=== PATIENT | male | born 1940 | race Caucasian/White ===

== ENCOUNTER 2016-09-23 07:07 | Observation (INO) ==
--- NOTE | 2016-09-23 07:27 | Emergency Department Note ---
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 Patient presents with Sun and you do assist with history. Patient reports 3 days ago he was walking with a walker when he attempted to reach over on the counter felt weak and fell onto his knees. Since then has noticed some weakness in his lower extremities. He denies any head injury, loss of consciousness or neck pain at this time. He does have a small abrasion and contusion to the right upper extremity. Denies any fever, recent illness, cough, chest pain, shortness of breath. Reports some dysuria and has a history of frequent UTI. Of note patient had chemotherapy over year ago and did not have these symptoms given that he recently underwent chemotherapy again. Oat Cell in the lung current in the throat they report. He takes aspirin and clopidogrel. His oncologist is Dr. Wolfe and Dr. Oliver. On physical exam patient appears in no acute distress. He provides adequate history. Neurologic exam is normal without any focal neural deficits. Has full range of motion to all 4 extremities with some noticeable weakness symmetrical bilaterally to lower extremities. Sensation intact. CT of the head ordered. EKG, basic labs, troponin in a urinalysis ordered. Pain Scale: 0 - Related Data Home Medications Medication Instructions Recorded Confirmed Aspirin [Adult Low Dose Aspirin EC] 81 mg PO QAM 04/10/15 09/23/16 Metoprolol Tartrate [Lopressor] 50 mg PO BID 04/10/15 09/23/16 Cholecalciferol (Vitamin D3) 1,000 unit PO DAILY 05/31/16 09/23/16 [Vitamin D] Clopidogrel [Plavix] 75 mg PO DAILY 05/31/16 09/23/16 Donepezil [Aricept] 10 mg PO HS 05/31/16 09/23/16 Losartan Potassium [Cozaar] 50 mg PO BID 09/23/16 09/23/16 Memantine [Namenda] 5 mg PO DAILY 09/23/16 09/23/16 Previous Rx's Medication Instructions Recorded Omeprazole [PriLOSEC] 20 mg PO DAILY #30 capsule. 05/25/15 Allergies Allergy/AdvReac Type Severity Reaction Status Date / Time meperidine [From Demerol] AdvReac Itching Verified 09/12/16 10:35 All systems ED: reviewed and negative except as stated. Review of Systems: As Per HPI Constitutional: Reports: weakness. Denies: fever, chills Cardiovascular: Denies: chest pain, dyspnea on exertion Respiratory: Denies: cough, dyspnea Gastrointestinal: Denies: abdominal pain, nausea, vomiting Genitourinary: Reports: dysuria. Denies: urgency Musculoskeletal: Denies: back pain, neck pain Integumentary: Reports: abrasion, lesions. Denies: rash Neurological: Reports: weakness. Denies: headache Past Medical History - Past Medical History Attestation: Yes The following information was validated with the patient. Source: patient Medical history: Reports: cancer, coronary artery disease, CVA, GERD, hyperlipidemia, hypertension, myocardial infarction, TIA Psychiatric history: Reports: anxiety, depression - Social History Smoking Status: Never smoker Smokeless Tobacco Status: No Alcohol use: Reports: none Drug use: Reports: none Physical Exam - General Limitations: no limitations General appearance: alert, in no apparent distress - Head Head exam: atraumatic, normocephalic, normal inspection - Eye Eye exam: Present: normal appearance, PERRL, EOMI - ENT ENT exam: normal exam, normal oropharynx, mucous membranes moist - Neck Neck exam: Present: normal inspection, full ROM. Absent: tenderness - Expanded Neck Exam Neck exam focused ED: Absent: midline tenderness - Chest Chest inspection: Present: normal inspection, symmetric chest wall rise, other ( X maco on left upper chest wall for radiation). Absent: tenderness - Respiratory Respiratory exam: Present: normal lung sounds bilaterally. Absent: respiratory distress, wheezes - Cardiovascular Cardiovascular exam: Present: regular rate, normal rhythm, normal heart sounds - Abdominal Exam Abdominal exam: Present: soft, Non-Tender, normal bowel sounds. Absent: tenderness, distention, guarding, rebound, rigidity - Extremities Exam Extremities exam: Present: full ROM, normal capillary refill, other (contusion and ecchymosis to right arm and forearm). Absent: tenderness - Expanded Upper Extremity Exam Shoulder exam: Present: normal inspection, full ROM. Absent: tenderness Arm exam: Present: normal inspection, full ROM, ecchymosis. Absent: tenderness , swelling Elbow exam: Present: normal inspection, full ROM, ecchymosis. Absent: tenderness, swelling Forearm/Wrist exam: Present: normal inspection, full ROM, ecchymosis Hand exam: Present: normal inspection, full ROM Neuromotor exam: Normal: wrist extension, thumb opposition, thumb IP flexion, thumb adduction, fingers 2-5 abduction Vascular exam: Normal: capillary refill, radial pulse - Back Exam Back exam: Present: normal inspection, full ROM. Absent: tenderness, vertebral tenderness - Expanded Neurological Exam Patient oriented to: Present: person, place Cranial nerves: EOM function (II, III, IV, ): Normal, facial sensation (V): Normal, facial palsy (VII): Normal, gag reflex (IX): Normal, spinal accessory function (XI): Normal, tongue deviation (XII): Normal Motor strength - LUE: 5/5 Motor strength - RUE: 4/5 Motor strength - LLE: 5/5 Motor strength - RLE: 5/5 Upper motor neuron exam: alon neglect: Absent bilaterally, pronator drift: Absent bilaterally Sensory exam upper extremity: light touch: Normal Sensory exam lower extremity: light touch: Normal Course - Reevaluation(s) Reevaluation #1: assist with history. Patient reportedly had a fall when he was reaching out ambulating with his walker. Denies any head injury or loss of consciousness. Neurovascular exam is normal without any focal neural deficits. He has some weakness to the right upper extremity from residual stroke in the past. He also has ecchymosis to the arm no tenderness. Full range of motion intact. Labs in images obtained. He has a mild elevation of his creatinine. Urinalysis appears consistent with contamination, urine culture ordered. He still unable to ambulate or stand up under his own weight. Patient has overall generalize weakness despite full range of motion to all extremities. He does not have any findings consistent with infectious source. CT of the head did not reveal any intracranial abnormality. Will speak to the oncologist to investigate this could be likely secondary to chemoradiation. Patient will likely need admission. Family and patient are in agreement with this plan. Time: 09:46 - Consultations Consultation #1: Spoke to Dr. MAC oncologist, agrees it could be chemotherapy. Recommend admission to medicine to establish PT/OT and build strength. Will consult on the floor. Time: 09:46 Consultation #2: Spoke with on-call hospitalist reddy Ugarte to admit for generalized weakness. No further orders at this time Vital Signs Temperature 98.4 F 09/23/16 07:10 Pulse Rate 62 09/23/16 07:10 Respiratory Rate 18 09/23/16 07:10 Blood Pressure 148/77 09/23/16 07:10 O2 Sat by Pulse Oximetry 96 09/23/16 07:10 Temperature 98.3 F 09/23/16 18:37 Pulse Rate 59 09/23/16 18:37 Respiratory Rate 16 09/23/16 18:37 Blood Pressure 115/61 09/23/16 18:37 O2 Sat by Pulse Oximetry 95 09/23/16 18:37 Oxygen Delivery Oxygen Delivery Room Air Medical Decision Making - Medical Records Medical records reviewed: Yes I reviewed the patient's medical records. - Lab Data Lab results reviewed: Yes I reviewed the patient's lab results. Result diagrams: 09/23/16 07:42 09/23/16 07:42 Lab Results 09/23/16 09/23/16 09/23/16 Range/Units 07:19 07:42 07:42 WBC 4.9 (4.3-11.1) K/mcL RBC 4.04 L (4.19-5.50) M/mcL Hgb 11.9 L (12.9-16.9) g/dL Hct 35.4 L (37.5-50.1) % MCV 87.6 (83.0-100.0) fL MCH 29.5 (28.0-33.3) pg MCHC 33.6 (31.6-35.5) g/dL RDW 13.6 (11.5-14.5) % Plt Count 117 L (140-400) K/mcL MPV 9.6 (9.4-12.4) fL Immature Gran % 1.6 (0-4) % Seg Neutrophils % 87.0 % Lymphocytes % 9.0 % Monocytes % 2.0 % Eosinophils % 0.2 % Basophils % 0.2 % Neutrophils # 4.3 (1.6-8.9) K/mcL Lymphocytes # 0.4 L (0.6-4.6) K/mcL Monocytes # 0.1 (0.0-1.3) K/mcL Eosinophils # 0.0 (0.0-0.6) K/mcL Basophils # 0.0 (0.0-0.2) K/mcL Sodium 139 (136-145) mEq/L Potassium 4.0 (3.5-4.5) mEq/L Chloride 103 (98-109) mEq/L Carbon Dioxide 27 (19-29) mEq/L BUN 26 (8-26) mg/dL Creatinine 1.31 H (0.72-1.25) mg/dL Est GFR ( Amer) > 60 (> 60) Est GFR (Non-Af Amer) 54 L (> 60) BUN/Creatinine Ratio 20 (6-26) Glucose 105 H (70-99) mg/dL POC Glucose 130 H (58-89) Calculated Osmolality 293 (280-300) Calcium 9.2 (8.6-10.8) mg/dL Troponin I (0-0.03) ng/mL Urine Color (Yellow) Urine Clarity (Clear) Urine pH (5.0-8.0) pH Units Ur Specific Lamy (1.010-1.025) Urine Protein (Neg-Trace) mg/dL Urine Glucose (UA) (Normal) mg/dL Urine Ketones (Negative) mg/dL Urine Blood (Negative) Urine Nitrite (Negative) Urine Bilirubin (Negative) Urine Urobilinogen (Normal) mg/dL Ur Leukocyte Esterase (Negative) Urine Microscopic RBC (0-3) per hpf Urine Microscopic WBC (0-3) per hpf Ur Squamous Epith Cells (None-Few) per lpf Urine Bacteria (None-Few) per hpf Hyaline Casts (None-Few) per lpf Ur Culture Indicated? (NO) 09/23/16 09/23/16 Range/Units 07:42 08:20 WBC (4.3-11.1) K/mcL RBC (4.19-5.50) M/mcL Hgb (12.9-16.9) g/dL Hct (37.5-50.1) % MCV (83.0-100.0) fL MCH (28.0-33.3) pg MCHC (31.6-35.5) g/dL RDW (11.5-14.5) % Plt Count (140-400) K/mcL MPV (9.4-12.4) fL Immature Gran % (0-4) % Seg Neutrophils % % Lymphocytes % % Monocytes % % Eosinophils % % Basophils % % Neutrophils # (1.6-8.9) K/mcL Lymphocytes # (0.6-4.6) K/mcL Monocytes # (0.0-1.3) K/mcL Eosinophils # (0.0-0.6) K/mcL Basophils # (0.0-0.2) K/mcL Sodium (136-145) mEq/L Potassium (3.5-4.5) mEq/L Chloride (98-109) mEq/L Carbon Dioxide (19-29) mEq/L BUN (8-26) mg/dL Creatinine (0.72-1.25) mg/dL Est GFR ( Amer) (> 60) Est GFR (Non-Af Amer) (> 60) BUN/Creatinine Ratio (6-26) Glucose (70-99) mg/dL POC Glucose (58-89) Calculated Osmolality (280-300) Calcium (8.6-10.8) mg/dL Troponin I 0.00 (0-0.03) ng/mL Urine Color Yellow (Yellow) Urine Clarity Clear (Clear) Urine pH 6.0 (5.0-8.0) pH Units Ur Specific Lamy 1.019 (1.010-1.025) Urine Protein Negative (Neg-Trace) mg/dL Urine Glucose (UA) Normal (Normal) mg/dL Urine Ketones Negative (Negative) mg/dL Urine Blood Negative (Negative) Urine Nitrite Negative (Negative) Urine Bilirubin Negative (Negative) Urine Urobilinogen Normal (Normal) mg/dL Ur Leukocyte Esterase Trace H (Negative) Urine Microscopic RBC 0-3 (0-3) per hpf Urine Microscopic WBC 3-5 H (0-3) per hpf Ur Squamous Epith Cells Many H (None-Few) per lpf Urine Bacteria Many H (None-Few) per hpf Hyaline Casts None Seen (None-Few) per lpf Ur Culture Indicated? YES A (NO) - Radiology Data Radiology results reviewed: Yes I reviewed the patient's radiology results. Chest X-Ray 09/23/16 07:25 IMPRESSION: Normal chest x-ray D/ / Wilberto Reaves MD / Wilberto Reaves MD Interpreting Provider: Wilberto Reaves MD Head CT 09/23/16 07:25 IMPRESSION: 1. No acute intracranial abnormality nor acute calvarial fracture. 2. Minimal to mild chronic small vessel ischemic changes. D/ / Aravind Sandhu MD / Aravind Sandhu MD Interpreting Provider: Aravind Sandhu MD - EKG Data EKG #1 EKG attestation: Yes I reviewed and interpreted this EKG. EKG results narrative: EKG performed 716 normal sinus rhythm 63 bpm, normal axis, no ST elevation or depression, no T wave inversion, intervals are within normal limits. Compared to old EKG performed 04/10/2015 with consistent findings. No acute ischemic changes. Attestation Statement - Attestation Attestation: I examined this patient and my medical decision-making was reviewed with the Resident Physician. I agree with the documented findings, disposition and treatment plan as described except to the extent set forth below. To ED with weakness. states that he was up and down all night. He could not stand on his own. He was having trouble getting to the bathroom. He had a fall on Friday. That is when all of this began. 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 Last treatment was Friday. He has been afebrile. No chest pain. No nausea vomiting. Examination shows an laying in bed in no acute distress. Moving all extremities. Abdomen soft nontender. Lungs clear. Plan. His workup has been unremarkable. CT head unremarkable. 3-5 whites in his urine. Electrolytes unremarkable. We will discussed with oncology.
[2016-09-23 08:01] LABS: Basophils % 0.2 %; Eosinophils % 0.2 %; Hematocrit 35.4 % (37.5-50.1); Hemoglobin 11.9 g/dL (12.9-16.9); Immature Granulocytes % 1.6 % (0-4); Lymphocytes # 0.4 K/mcL (0.6-4.6); Mean Corpuscular HGB Conc 33.6 g/dL (31.6-35.5); Mean Corpuscular Hemoglobin 29.5 pg (28.0-33.3); Mean Corpuscular Volume 87.6 fL (83.0-100.0); Mean Platelet Volume 9.6 fL (9.4-12.4); Monocytes # 0.1 K/mcL (0.0-1.3); Neutrophils # 4.3 K/mcL (1.6-8.9); Platelet Count 117 K/mcL (140-400); Red Blood Count 4.04 M/mcL (4.19-5.50); Red Cell Distribution Width 13.6 % (11.5-14.5)
[2016-09-23 08:02] LABS: BUN/Creatinine Ratio 20 (6-26); Blood Urea Nitrogen 26 mg/dL (8-26); Calcium 9.2 mg/dL (8.6-10.8); Carbon Dioxide 27 mEq/L (19-29); Chloride 103 mEq/L (98-109); Glucose 105 mg/dL (70-99); Osmolality,Calculated 293 (280-300); Sodium 139 mEq/L (136-145); eGFR For African Americans > 60 (> 60); eGFR For Non-African Americans 54 (> 60)
[2016-09-23 08:35] LABS: Bilirubin,Urine Negative (Negative); Blood,Urine Negative (Negative); Clarity,Urine Clear (Clear); Color,Urine Yellow (Yellow); Glucose,Urine (UA) Normal (Normal); Ketones,Urine Negative (Negative); Leukocyte Esterase,Urine Trace (Negative); Nitrite,Urine Negative (Negative); Protein,Urine Negative (Neg-Trace); Specific Gravity,Urine 1.019 (1.010-1.025); Urobilinogen,Urine Normal (Normal)
[2016-09-23 08:36] LABS: Bacteria,Urine Many per hpf (None-Few); Hyaline Casts,Urine None Seen per lpf (None-Few); RBC,Urine 0-3 per hpf (0-3); Squamous Epithelial Cell,Urine Many per lpf (None-Few)
[2016-09-23] MEDS ORDERED: 0.9 % Sodium Chloride 1,000 ML IVC ONE (09:45)
[2016-09-23] MEDS ORDERED: Albuterol 2.5 MG/3 ML NEBULIZER IH PRN (13:05)
[2016-09-23] MEDS ORDERED: Naloxone 0.4 MG/ML INJ IVP PRN (13:07)
--- NOTE | 2016-09-23 13:45 | Internal Med History&Physical ---
<Maninder Goins - Last Filed: 09/23/16 13:50> Date of Encounter: 09/23/16 Time of Encounter: 13:31 Assessment and Plan (1) TIA (transient ischemic attack) Current visit: Yes Status: Acute She is being admitted to rule out transient ischemic attack. Reports a 3 day history of generalized weakness with a fall at home. Reports no head trauma as result of fall. Patient notes over the last 3 days weakness is progressing, he now has a shuffling gait, and what he describes as scissoring gait. Admit for observation Oncology consult in the emergency department PT/OT consult for recent motor deficits. If symptoms do not improve consider a consult to neuro. Every 4 hours neuro checks NIHSS score dysphagia screening start Diet based upon results of screening. Every 4 hours vital signs Normal saline at 80 mL an hour Continuous telemetry Continuous SPO2 Place on O2 PRN for spo2 above 92% CBC, BMP, PHOS, MG in am. UA positive in the ED with trace leuks, d/t immunocompromise Send UC and place on Rocephin. De-escalate antibiotic therapy appropriate based upon results of culture 2.5 INH Albuterol Q2hr for dyspnea/wheezing Qualifiers: Transient cerebral ischemia type: unspecified Qualified Code(s): G45.9 - Transient cerebral ischemic attack, unspecified (2) Bilateral leg weakness Current visit: No Status: Acute New bilateral lower extremity weakness that is noted as progressive. Denies any numbness and tingling. Strength deficits/3 bilaterally. No neglect or hypotonia noted. Admit for observation PT/OT consult for recent motor deficits. If symptoms do not improve consider a consult to neuro. Every 4 hours neuro checks NIHHS score Every 4 hours vital signs CBC, BMP, PHOS, MG in am. (3) UTI (urinary tract infection) Current visit: Yes Status: Acute Suspect urinary tract infection. UA sent in the emergency department revealed as the patient is immunocompromised and has a recent history of UTI I recommended placed on prophylactic antibiotic treatment with Rocephin 1 g daily. Urine culture sent plan to de-escalate antibiotic therapy is appropriate. Admit for observation CBC, BMP, PHOS, MG in am. Qualifiers: Urinary tract infection type: site unspecified Hematuria presence: without hematuria Qualified Code(s): N39.0 - Urinary tract infection, site not specified (4) DVT prophylaxis Current visit: Yes Status: Acute The patient does have cancer he is a high risk for DVT. DVT prophylaxis implemented with Lovenox 40 mg subcutaneous. Internal Medicine - H&P: HPI Chief complaint: Generalized BLE weakness, and fall starting 3 days ago Admitted From: Home Plans for Post Hospital Care: Home History of present illness: Mr. Lucas is a 75 year old male CVA, TIA, GERD, HLD, HTN, [place] 6 years ago, anxiety, depression, and a recent diagnosis of cell carcinoma of his neck for which she is being seen by the oncology. Presented to [facility] today with complaint of ongoing, and progressive generalized weakness of BLE 3 days and a fall without head trauma 3 days ago. Denies any N/T or pain in BLE. BLE weakness is noted to increase with any activity and only minimally relieved by rest. at bedside and She notes that the weakness appears to be getting worse after the fall on Friday. 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 He last received chemotherapy on Friday of last week denies any fever, flulike symptoms, dizziness, headaches , vision changes, chest pain, or shortness of breath. Admits to new dysuria, with urinary urgency, and incontinence as well as new bilateral lower extremity weakness, new shuffling gait, with scissoring developing over the last [address] of the head completed an EGD and was found to be negative for acute intracranial abnormalities. Did note minimal to mild chronic small vessel ischemic disease as patient does have history of CVA. EKG in the ED showed sinus rhythm. Troponin negative at 0.00. There is additional concern for UTI UA was sent indicating trace leuks and the patient is immunocompromised. His states that he was up many times throughout the night complaining of dysuria and urinary urgency. He Is being admitted [facility] for further workup and evaluation. Past Med Surg Social Fam HX - Past Medical History Medical history: cancer, coronary artery disease, CVA, GERD, hyperlipidemia, hypertension, myocardial infarction, TIA Psychiatric history: anxiety, depression - Social History Smoking Status: Never smoker Smokeless Tobacco Status: No Alcohol use: none Drug use: none - Family History Father Living Status: Hx Family Cardiac Disorders: Yes Hx Family Respiratory Disorders: No Hx Family Cancer: Yes Hx Family GI Disorders: No Hx Family Endocrine Disorder: No Mother Living Status: Hx Family Cancer: Yes (skin) Brother Hx Family Cancer: Yes (skin) Sister Hx Family Cancer: Yes (skin) Internal Medicine - H&P: Meds Aspirin [Adult Low Dose Aspirin EC] 81 mg PO QAM 04/10/15 [History] Metoprolol Tartrate [Lopressor] 50 mg PO BID 04/10/15 [History] Omeprazole [PriLOSEC] 20 mg PO DAILY #30 capsule. 05/25/15 [Rx] Cholecalciferol (Vitamin D3) [Vitamin D] 1,000 unit PO DAILY 05/31/16 [History] Clopidogrel [Plavix] 75 mg PO DAILY 05/31/16 [History] Donepezil [Aricept] 10 mg PO HS 05/31/16 [History] Losartan Potassium [Cozaar] 50 mg PO BID 09/23/16 [History] Memantine [Namenda] 5 mg PO DAILY 09/23/16 [History] Allergies meperidine [From Demerol] Adverse Reaction (Verified 09/12/16 10:35) Itching All Systems PM: A 10-system review of systems was performed and is negative for pertinent findings except as documented above in the HPI. - Constitutional Constitutional: fatigue, weakness (New progressive Fatigue and weakness noted over the last 3 days), no chills, no fever(s), no night sweats - EENT Eyes: no blurry vision, no change in vision, no discharge, no loss of vision, no pain, no photophobia, no spots in vision, no other visual disturbances Ears: no ear discharge, no ear pain, no tinnitus Nose, mouth and throat: no dysphagia, no nasal discharge, no neck pain, no sore throat - Cardiovascular Cardiovascular ROS IM: dyspnea (However it is noted as chronic), no chest pain, no diaphoresis, no irregular heart rhythm, no lightheadedness, no palpitations, no syncope - Respiratory Respiratory: cough (Chronic nonproductive cough noted, not getting any worse), no dyspnea, no wheezing, no excessive phlegm production - Gastrointestinal Gastrointestinal: no abdominal pain, no diarrhea, no hematemesis, no hematochezia, no melena, no nausea, no vomiting - Genitourinary Genitourinary ROS male: dysuria (Dysuria 3 days), nocturia (Admits to nocturia 3 days up to 5 times a night), urinary frequency, urinary incontinence (New 3 days), urinary urgency, no flank pain, no hematuria, no scrotal swelling - Musculoskeletal Musculoskeletal ROS IM: muscle weakness (Lateral lower extremity muscle weakness with new shuffling gait and what he describes as possibly a scissoring gait), no back pain, no joint swelling, no limited range of motion, no numbness , no tingling - Integumentary Integumentary IM: no rash, no unusual bruising - Neurological Neurological ROS: abnormal gait, weakness, no abnormal movements, no abnormal speech, no behavioral changes, no burning sensations, no confusion, no convulsions, no disequilibrium, no dizziness, no focal weakness, no headache(s) , no lack of coordination, no loss of vision, no numbness, no tingling, no tremor(s) - Psychiatric Psychiatric: anxiety (Admits to being increasingly anxious over the last 3 days , admits that functional decline and new cancer diagnosis/treatment may be the cause) - Hematologic/Lymphatic Hematologic/Lymphatic: no easy bruising - Constitutional Vitals: Temp Pulse Resp BP Pulse Ox 98.3 F 74 14 172/63 96 09/23/16 12:21 09/23/16 12:21 09/23/16 12:21 09/23/16 12:21 09/23/16 13:02 General appearance: Present: A&O X 3, pleasant, answers questions appropriately Exam: The patient appears to be slightly anxious. He believes his anxiety stems from new functional decline, and cancer diagnosis. Also, the room and was placed and was assumed to be a hospice room by he and his . It was explained to him that this was not a hospice room and that he did not need to worry about that at this time. - Head Head exam: Present: atraumatic, normocephalic - Eye Eye exam: Present: PERRL, conjuntiva pink, sclera anicteric Pupils: Present: PERRL - Neck Neck exam general surgery: Present: supple, trachea midline. Absent: lymphadenopathy - Respiratory Respiratory exam: Present: CTAB. Absent: accessory muscle use, rales, rhonchi, wheezes - Cardiovascular Cardiovascular exam: Present: RRR, +S1, +S2. Absent: diastolic murmur, gallop, rubs, systolic murmur - GI/Abdominal GI/Abdominal exam: Present: normal bowel sounds, soft, no peritoneal signs. Absent: distended, tenderness - Extremities Exam Extremities exam: Present: warm, radial pulses palpable and symmetrical. Absent : calf tenderness, cyanotic, pedal edema - Neurological Exam Neurological exam: Present: CN II-XII intact, oriented X3, reflexes normal, no focal deficits. Absent: pronater drift, facial droop, speech deficit Additional comments: Strength deficits noted, upper extremities disproportionately lower extremities. 4/3 bilaterally. No dysarthria, facial palsies, neglect, hypotonia, or alterations and reflexes noted. Exam revealed only bilateral lower extremity weakness. - Skin Skin exam: Present: dry, intact Additional comments: Ecchymosis is noted to right upper extremity. Internal Med - H&P Results - Labs CBC & Chem 7: 09/23/16 07:42 09/23/16 07:42 - EKG Data EKG shows normal: sinus rhythm Rate: normal - EKG Data Prior EKG available for review: yes When compared to previous EKG: there is no significant change - Diagnostic Studies Chest x-ray Additional comments: No acute pulmonary process CT scan - head Additional comments: No acute intracranial abnormalities. However, did note minimal to mild chronic small vessel ischemic changes. <Gill Howell - Last Filed: 09/23/16 18:39> Date of Encounter: 09/23/16 Internal Medicine - H&P: HPI History of present illness: Mr. Lucas is a 75 year old male All Systems PM: A 10-system review of systems was performed and is negative for pertinent findings except as documented above in the HPI. - Constitutional Vitals: Temp Pulse Resp BP Pulse Ox 98.3 F 59 16 115/61 95 09/23/16 18:37 09/23/16 18:37 09/23/16 18:37 09/23/16 18:37 09/23/16 18:37 Internal Med - H&P Results - Labs CBC & Chem 7: 09/23/16 07:42 09/23/16 07:42 - Attending Attestation I examined this patient and my medical decision-making was reviewed with the HOME HEALTH CNA. I agree with the documented findings, disposition and treatment plan as described .
--- NOTE | 2016-09-23 14:10 | Oncology Inp Consult Note ---
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 He has not experienced significant myelosupression, however there is significant worsening of his performance status due to generalized weakness. At this time there is not clear evidence of an underlying infection, recurrent stroke or electrolytes abnormalities to explain his worsening generalized weakness. It could be related to his recent course of cisplatin/etoposide. At this time he is in the middle of his chemotherapy regimen and there are not indications for inpatient chemotherapy. - Please monitor CBC daily while inpatient. (2) Weakness Status: Acute Assessment and plan: Management and work up as per primary team. If work up does not reveal a clear culprit for his worsening weakness, for exclusion, his diagnosis chemotherapy induced generalized weakness. He will need to follow up with primary oncologist after discharge to decide whether it would be necessary to dose adjust next chemo treatment or delay treatment until his performance status has improved. He and his are aware that he may need SNF rehab, institutional care. - Data of Consult Requesting Physician: Ashley Mckeon Primary Care Provider: PCP [place] - Consult Narrative Reason for consult: management of small cell carcinoma History of present illness: Chief complaint: generalized weakness/recent fall. Mr. Lucas is a 75 year old male of small cell neuroendocrine cancer ( [id number]) s /p concurrent chemoradiation with 4 cycles of cisplatin/etoposide from 06/08/15 to 08/16/15 with scans revealing good response to therapy, and recent biopsy biopsy of left supra clavicular node revealing recurrence, with palliative chemotherapy with cisplatin 50 mg/m2 and etoposide 60 mg/m2 ( 21 day cycle) started on 09/16/16. Patient was accompanied by his who provide most of the history. 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 Patient's report that he experienced significant worsening of his performance status following chemotherapy, caracterized mainly for generalized weakness, but not focal complaints. She reports that prior to chemotherapy he used to be able to ambulate at home with a walker ( with not fall in the prior 6 weeks), and take a shower independently. Since completing of chemotherapy she noticed a significant decline, now being unable to ambulate, he cannot stand by himself; on Friday, while trying to reach a towel in the bathroom, he felt down onto his knees. She has also noticed worsening of his chronic urinary incontinence, along with chronic back pain. She reports that he is complaining of dysphagia what has been attrited to his neck metastatic lesion, and for the last few weeks she has noticed that he cough after eating. she denies any recent episode of fever, chills, focal weakness, bleeding events. His creatinine is mildly elevated, but she does not think that he could be dehydrated in view that he has been drinking abundant fluids. Hospital course: CT head failed to show acute intra cranial lesions. Past Med Surg Social Fam HX - Past Medical History Medical history: cancer, coronary artery disease, CVA, GERD, hyperlipidemia, hypertension, myocardial infarction, TIA Psychiatric history: anxiety, depression - Social History Smoking Status: Never smoker Smokeless Tobacco Status: No Alcohol use: none Drug use: none Additional social history: Lives with his who is the main caregiver. Reports that he was independent with ambulatation and shower until last week. - Family History Mother Living Status: Hx Family Cancer: Yes (skin) Brother Hx Family Cancer: Yes (skin) Sister Hx Family Cancer: Yes (skin) Father Living Status: Hx Family Cardiac Disorders: Yes Hx Family Respiratory Disorders: No Hx Family Cancer: Yes Hx Family GI Disorders: No Hx Family Endocrine Disorder: No Medications and Allergies Aspirin [Adult Low Dose Aspirin EC] 81 mg PO QAM 04/10/15 [History] Metoprolol Tartrate [Lopressor] 50 mg PO BID 04/10/15 [History] Omeprazole [PriLOSEC] 20 mg PO DAILY #30 capsule. 05/25/15 [Rx] Cholecalciferol (Vitamin D3) [Vitamin D] 1,000 unit PO DAILY 05/31/16 [History] Clopidogrel [Plavix] 75 mg PO DAILY 05/31/16 [History] Donepezil [Aricept] 10 mg PO HS 05/31/16 [History] Losartan Potassium [Cozaar] 50 mg PO BID 09/23/16 [History] Memantine [Namenda] 5 mg PO DAILY 09/23/16 [History] Allergies meperidine [From Demerol] Adverse Reaction (Verified 09/12/16 10:35) Itching Constitutional: Present: fatigue, malaise, weakness. Absent: excessive sweating , fever(s), night sweats Nose, mouth and throat: Present: dysphagia. Absent: mouth pain Cardiovascular: Present: pedal edema. Absent: chest pain with activity, diaphoresis, dyspnea on exertion Respiratory: Present: cough. Absent: dyspnea, hemoptysis, dyspnea on exertion, pain on inspiration, excessive phlegm production Gastrointestinal: Present: dysphagia. Absent: abdominal pain, fecal incontinence Genitourinary: urinary incontinence Musculoskeletal: Present: muscle weakness Integumentary: Absent: bleeding lesions Neurological: Present: confusion, memory loss. Absent: focal weakness Psychiatric: Present: confusion, memory loss Hematologic/Lymphatic: Absent: easy bleeding Allergic/Immunologic: Absent: throat swelling Oncology - Exam - Constitutional Vitals: Temp Pulse Resp BP Pulse Ox 98.3 F 74 14 172/63 96 09/23/16 12:21 09/23/16 12:21 09/23/16 12:21 09/23/16 12:21 09/23/16 13:02 - Head Head exam: Present: normal inspection - Eye Eye exam: Present: EOMI - ENT ENT exam: Present: normal exam, normal oropharynx - Respiratory Respiratory exam: Present: CTAB. Absent: prolonged expiratory phase, rales, respiratory distress - Cardiovascular Cardiovascular exam: Present: +S1 - GI/Abdominal GI/Abdominal exam: Present: normal bowel sounds. Absent: organomegaly, pulsatile mass, rebound - Extremities Exam Extremities exam: Present: pedal edema Additional comments: minimal pedal edema bilaterally . no tenderness - Back Exam Back exam: Present: vertebral tenderness. Absent: paraspinal tenderness - Neurological Exam Neurological exam: Present: alert, CN II-XII intact. Absent: no focal deficits - Psychiatric Psychiatric exam: Present: normal affect. Absent: agitated, anxious - Skin Skin exam: Present: normal color. Absent: abrasion, erythema Consult Discharge Plan - Plan [facility]errals: [facility] [Primary Care Provider] -
--- NOTE | 2016-09-23 14:45 | Electrocardiograph Report ---
[address] [address] Test Date: 2016-09-23 Pat Name: Rahat Lucas Department: 104 Room: 3B Gender: M [employer]: : 1940 Requested By: Bipin Brooke Order Number: [id number] Reading MD: Deshawn Joseph MD Measurements Intervals [place] Rate: 63 P: 9 GA: 141 QRS: 48 QRSD: 96 T: 55 QT: 407 QTc: 414 Interpretive Statements SINUS RHYTHM BASELINE ARTIFACT Electronically Signed On 09-23-2016 14:43:34 EDT by Deshawn Joseph MD
[2016-09-23] MEDS: Acetaminophen 325 MG TABLET PO PRN (14:58)
[2016-09-23] MEDS: 0.9 % Sodium Chloride 1,000 ML IVC SCH (14:59)
[2016-09-24] MEDS: Acetaminophen 325 MG TABLET PO PRN (05:01)
[2016-09-24] MEDS: 0.9 % Sodium Chloride 1,000 ML IVC SCH (05:04)
[2016-09-24] MEDS: *HR* Enoxaparin 40 MG/0.4 ML SYRINGE SQ SCH (06:30)
[2016-09-24 06:54] LABS: Basophils % 0.3 %; Hemoglobin 10.8 g/dL (12.9-16.9)
[2016-09-24 06:56] LABS: Eosinophils % 0.3 %; Hematocrit 32.2 % (37.5-50.1); Immature Granulocytes % 0.9 % (0-4); Immature Platelets 2.4 % (1.1-6.1); Lymphocytes # 0.5 K/mcL (0.6-4.6); Mean Corpuscular HGB Conc 33.5 g/dL (31.6-35.5); Mean Corpuscular Hemoglobin 29.8 pg (28.0-33.3); Mean Platelet Volume 9.6 fL (9.4-12.4); Monocytes # 0.2 K/mcL (0.0-1.3); Monocytes % 4.7 %; Neutrophils # 2.5 K/mcL (1.6-8.9); Red Blood Count 3.62 M/mcL (4.19-5.50); Red Cell Distribution Width 13.6 % (11.5-14.5); Segmented Neutrophils % 78.8 %
[2016-09-24 07:01] LABS: Platelet Count 93 K/mcL (140-400)
[2016-09-24 07:13] LABS: BUN/Creatinine Ratio 21 (6-26); Blood Urea Nitrogen 22 mg/dL (8-26); Calcium 8.5 mg/dL (8.6-10.8); Carbon Dioxide 26 mEq/L (19-29); Chloride 107 mEq/L (98-109); Chol/HDL Ratio 3.7 (0-4.9); Cholesterol 150 mg/dL (< 200); Glucose 96 mg/dL (70-99); HDL Cholesterol 41 mg/dL (40-59); LDL Cholesterol,Calculated 88 mg/dL (0-99); Magnesium 1.6 mg/dL (1.6-2.6); Osmolality,Calculated 291 (280-300); Sodium 139 mEq/L (136-145); Triglycerides 107 mg/dL (< 150); eGFR For African Americans > 60 (> 60); eGFR For Non-African Americans > 60 (> 60)
--- NOTE | 2016-09-24 09:32 | Oncology Inp Progress Note ---
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 Other than monitoring and supportive care, not need for inpatient related therapy. (2) Pancytopenia due to chemotherapy Current Visit: Yes Status: Acute Assessment and plan: - patient is experiencing mild-moderate myelosuppression. No need for transfusion of blood products at this time. Continue monitoring CBC daily and transfuse for HCT/Hb less than 21%/7 g/dl . Transfuse platelets if counts drop below 20 K or 50K if there is active bleeding. (3) Weakness Current Visit: No Status: Acute Assessment and plan: - Consider repeating TSH ( last one early this year within normal limits). - Consider PT/OT (4) Cough Current Visit: Yes Status: Acute Assessment and plan: Persistent. I wonder if he is experiencing. I would suggest swallow evaluation. Oncology: Subj Interval history: CC: cough after eating. Reports intermittent cough after eating. Still ongoing generalized weakness, but in good spirits today. Family at bedside. ROS: + for cough. Negative for CP. - Constitutional Vitals: Vital Signs Temp Pulse Resp BP Pulse Ox 09/24/16 06:40 98.2 F 55 16 137/68 96 09/24/16 02:50 102 F H 73 16 170/70 94 09/23/16 22:51 98.3 F 62 16 122/56 97 09/23/16 18:37 98.3 F 59 16 115/61 95 09/23/16 17:12 99.4 F 09/23/16 14:55 101.8 F H 83 14 136/74 94 09/23/16 13:02 96 09/23/16 12:21 98.3 F 74 14 172/63 96 09/23/16 12:03 18 154/56 Intake and Output 09/23/16 09/24/16 09/24/16 23:59 07:59 15:59 Intake Total 120 / 120 1000 / 1000 Balance 120 / 120 1000 / 1000 Intake: IV Fluids 1000 / 1000 0.9 % Sodium Chloride 1, 1000 / 1000 000 ML @ 80 mls/hr IVC . [id number] Rx#: [id number] Oral 120 / 120 Other: Meal Dinner Percent of Meal Consumed 75% # Urine Diapers 1 1 Weight 95.708 kg Patient Weight 09/24/16 23:59 Weight 95.708 kg General appearance: no acute distress, obese - ENT ENT exam: Present: normal exam - Respiratory Respiratory exam: Present: CTAB - Cardiovascular Cardiovascular exam: Present: RRR - GI/Abdominal GI/Abdominal exam: Present: normal bowel sounds - Extremities Exam Extremities exam: Present: normal inspection. Absent: tenderness - Neurological Exam Neurological exam: Present: alert, altered - Psychiatric Psychiatric exam: Present: normal affect - Skin Skin exam: Present: normal color Oncology: Obj Data - Labs CBC & Chem 7: 09/24/16 06:13 09/24/16 06:13 Labs: Laboratory Results - last 24 hr 09/24/16 09/24/16 06:13 06:13 WBC 3.2 L RBC 3.62 L Hgb 10.8 L Hct 32.2 L MCV 89.0 MCH 29.8 MCHC 33.5 RDW 13.6 Plt Count 93 L MPV 9.6 Immature Gran % 0.9 Seg Neutrophils % 78.8 Lymphocytes % 15.0 Monocytes % 4.7 Eosinophils % 0.3 Basophils % 0.3 Neutrophils # 2.5 Lymphocytes # 0.5 L Monocytes # 0.2 Eosinophils # 0.0 Basophils # 0.0 Immature Plt Fraction 2.4 Sodium 139 Potassium 4.0 Chloride 107 Carbon Dioxide 26 BUN 22 Creatinine 1.03 Est GFR ( Amer) > 60 Est GFR (Non-Af Amer) > 60 BUN/Creatinine Ratio 21 Glucose 96 Calculated Osmolality 291 Calcium 8.5 L Phosphorus 3.0 Magnesium 1.6 Triglycerides 107 Cholesterol 150 LDL Cholesterol, Calc 88 VLDL Cholesterol, Calc 21 HDL Cholesterol 41 Cholesterol/HDL Ratio 3.7 Consult Discharge Plan - Plan [facility]errals: [facility] [Primary Care Provider] -
[2016-09-24] MEDS: Aspirin Enteric Coated 81 MG Tablet PO SCH (09:59)
[2016-09-24] MEDS: Cholecalciferol (D-3) 1,000 UNIT TABLET PO SCH (10:00)
--- NOTE | 2016-09-24 17:32 | Internal Med Progress Note ---
Date of Encounter: 09/24/16 Time of Encounter: 15:55 - Assessment and plan (1) TIA (transient ischemic attack) Current Visit: Yes Status: Acute Assessment and plan: Patient reported a 3 day history of generalized weakness with a fall at home. Patient did not hit his head. He states that over the last 3 days the weakness had become progressive and that he had a shuffling gait. Patient states that he has been up and around in his room today and is feeling much better. He said he was able to go to the bathroom and take a shower with his baseline dyspnea with exertion. Physical therapy has recommended inpatient swing bed/ rehabilitation after discharge We will continue IV fluids and continue IV antibiotics for UTI. Will continue telemetry and continuous pulse ox. Continue oxygen as needed, titrate to maintain sats greater than 92%. Head CT negative. Last echo in Mar, 2015 showed LVEF 60%, normal systolic function and mild LVDD, aortic sclerosis, mild MR, moderate AR. Bilateral carotid systems are essentially normal in Mar, 2015. Pt states that he is feeling much better and is up and around better than he has been in several days. Continue to monitor pt condition and vital signs. Recent, acute weakness is most likely related to UTI, but I will repeat echo. Head CT 09/23/16 07:25 IMPRESSION: 1. No acute intracranial abnormality nor acute calvarial fracture. 2. Minimal to mild chronic small vessel ischemic changes. D/ / Aravind Sandhu MD / Aravind Sandhu MD Interpreting Provider: Aravind Sandhu MD Repeat echo Continue telemetry and pulse ox 02, titrate as needed to maintain sats > 92%. Qualifiers: Transient cerebral ischemia type: unspecified Qualified Code(s): G45.9 - Transient cerebral ischemic attack, unspecified (2) UTI (urinary tract infection) Current Visit: Yes Status: Acute Assessment and plan: Suspect urinary tract infection with trace of leukocyte esterase 3-5 white cells and many bacteria. Final Culture and sensitivity are pending. Preliminary urine culture grew enterococcus species. He is being treated with Rocephin will adjust antibiotic accordingly. Patient denies abdominal pain, an hematuria, any urinary symptoms such as urgency, frequency, abdominal pain. Qualifiers: Urinary tract infection type: site unspecified Hematuria presence: without hematuria Qualified Code(s): N39.0 - Urinary tract infection, site not specified (3) Pancytopenia due to chemotherapy Current Visit: Yes Status: Acute Assessment and plan: Patient has been seen by oncology: patient is experiencing mild-moderate myelosuppression. No need for transfusion of blood products at this time. Continue monitoring CBC daily and transfuse for HCT/Hb less than 21%/7 g/dl . Transfuse platelets if counts drop below 20 K or 50K if there is active bleeding. 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 He has been seen by oncology, they recommended supportive care and do not see a need for inpatient related therapy at this time. (5) Weakness Current Visit: Yes Status: Acute Assessment and plan: Patient reports bilateral leg weakness prior to arrival. Will repeat TSH. PT has recommended swing bed/inpatient rehabilitation placement for continued therapy to improve safety and independence. Continue PT Ambulate and up with assistance Fall precautions director of maternity services for assistance with placement. (6) Bilateral leg weakness Current Visit: No Status: Acute Assessment and plan: Plan as above. (7) DVT prophylaxis Current Visit: Yes Status: Acute - Time Spent With Patient less than 15 minutes - Subjective Interval history: Pt seen and assessed at 1555 today. He is alert, oriented, and states that he feels better today. He denies pain, chest pain, headache, n/v/d. He states that he took a shower and has walked to and from the bathroom without difficulty. - Constitutional Vitals: Temp Pulse Resp BP Pulse Ox 98.9 F 69 16 163/73 96 09/24/16 16:05 09/24/16 16:05 09/24/16 16:05 09/24/16 16:05 09/24/16 16:05 General appearance: Present: cooperative, A&O X 3, pleasant, no acute distress, answers questions appropriately - Head Head exam: Present: normal inspection - Eye Eye exam: Present: normal appearance, conjuntiva pink - ENT ENT exam: Present: mucous membranes moist, normal exam, normal external ear exam - Neck Neck exam general surgery: Present: normal inspection. Absent: lymphadenopathy , tenderness - Respiratory Respiratory exam: Present: CTAB. Absent: chest wall tenderness, rales, respiratory distress, rhonchi, stridor, wheezes - Cardiovascular Cardiovascular exam: Present: RRR, +S1, +S2. Absent: clicks, diastolic murmur, gallop, systolic murmur - GI/Abdominal GI/Abdominal exam: Present: distended, normal bowel sounds, soft. Absent: hepatomegaly, tenderness - Extremities Exam Extremities exam: Present: normal capillary refill, warm, radial pulses palpable and symmetrical. Absent: pedal edema, tenderness - Neurological Exam Neurological exam: Present: alert, oriented X3, no focal deficits. Absent: pronater drift, facial droop, speech deficit - Skin Skin exam: Present: dry, intact, normal color, warm. Absent: rash Internal Medicine: Result - Labs CBC & Chem 7: 09/24/16 06:13 09/24/16 06:13 Labs: Short CBC 09/24/16 Range/Units 06:13 WBC 3.2 L (4.3-11.1) K/mcL Hgb 10.8 L (12.9-16.9) g/dL Hct 32.2 L (37.5-50.1) % Plt Count 93 L (140-400) K/mcL Neutrophils # 2.5 (1.6-8.9) K/mcL BMP 09/24/16 06:13 Sodium 139 Potassium 4.0 Chloride 107 Carbon Dioxide 26 BUN 22 Creatinine 1.03 Glucose 96 Calcium 8.5 L Consult Discharge Plan - Plan [facility]errals: [facility] [Primary Care Provider] -
[2016-09-25] MEDS: 0.9 % Sodium Chloride 1,000 ML IVC SCH ×3 (04:17→19:32)
[2016-09-25 04:44] LABS: Basophils % 0.9 %; Eosinophils % 0.9 %; Hematocrit 31.2 % (37.5-50.1); Hemoglobin 10.5 g/dL (12.9-16.9); Immature Granulocytes % 1.3 % (0-4); Immature Platelets 2.2 % (1.1-6.1); Lymphocytes # 0.5 K/mcL (0.6-4.6); Mean Corpuscular HGB Conc 33.7 g/dL (31.6-35.5); Mean Corpuscular Hemoglobin 30.1 pg (28.0-33.3); Mean Corpuscular Volume 89.4 fL (83.0-100.0); Mean Platelet Volume 9.3 fL (9.4-12.4); Monocytes # 0.2 K/mcL (0.0-1.3); Monocytes % 6.5 %; Neutrophils # 1.6 K/mcL (1.6-8.9); Red Blood Count 3.49 M/mcL (4.19-5.50); Red Cell Distribution Width 13.7 % (11.5-14.5); Segmented Neutrophils % 67.4 %
[2016-09-25 04:58] LABS: BUN/Creatinine Ratio 24 (6-26); Blood Urea Nitrogen 23 mg/dL (8-26); Calcium 8.3 mg/dL (8.6-10.8); Carbon Dioxide 26 mEq/L (19-29); Chloride 108 mEq/L (98-109); Glucose 98 mg/dL (70-99); Osmolality,Calculated 298 (280-300); Platelet Count 86 K/mcL (140-400); Potassium 3.9 mEq/L (3.5-4.5); Sodium 142 mEq/L (136-145); eGFR For African Americans > 60 (> 60); eGFR For Non-African Americans > 60 (> 60)
[2016-09-25 05:07] LABS: Platelet Estimate Decreased (Normal)
[2016-09-25] MEDS: *HR* Enoxaparin 40 MG/0.4 ML SYRINGE SQ SCH (05:30)
[2016-09-25] MEDS: Cholecalciferol (D-3) 1,000 UNIT TABLET PO SCH (09:14)
[2016-09-25] MEDS: Aspirin Enteric Coated 81 MG Tablet PO SCH (09:15)
--- NOTE | 2016-09-25 10:09 | Oncology Inp Progress Note ---
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 No grade 3-4 chemo associated side effects, other than possibly chemo-associated generalized weakness/fatigue that seems to be improving. - He is experiencing moderate myelosupression, his counts have not reached the nadeen. Continue monitoring CBC diff daily. If his ANC continue to drop in AM labs, I will recommend to start tomorrow: Neupogen 480 mg SQ daily until ANC is above 1000 in 2 consecutive days. He would probably will benefit from neulasta following cycle # 2 of cisplatin/etoposide. (2) Pancytopenia due to chemotherapy Current Visit: Yes Status: Acute Assessment and plan: - More likely chemo-related. As described above, if ANC continues to drop in AM , consider neupogen 480 mcg SQ daily until ANC is above 1000 x 2. - No need for transfusion of blood products at this time. Continue monitoring CBC daily and transfuse for HCT/Hb less than 21%/7 g/dl . Transfuse platelets if counts drop below 20 K or 50K if there is active bleeding. Oncology: Subj Interval history: CC: generalized weakness. 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 His cell counts continued to drop, ANC down to 1.6, denies fever, chills. Platelets and red cell counts dropping too. denies bleeding issues. Tolerating meals. ROS: positive for generalized weakness, negative for CP, SOB. - Constitutional Vitals: Vital Signs Temp Pulse Resp BP Pulse Ox 09/25/16 09:19 99.1 F 67 16 134/65 95 09/25/16 03:30 99.3 F 67 20 194/72 96 09/24/16 23:18 99.2 F 66 18 159/70 93 09/24/16 21:35 95 09/24/16 19:15 100.5 F H 72 20 196/73 95 09/24/16 16:05 98.9 F 69 16 163/73 96 09/24/16 11:26 97.6 F 60 15 145/86 97 Intake and Output 09/24/16 09/25/16 09/25/16 23:59 07:59 15:59 Intake Total 1360 / 1360 1000 / 1000 Output Total 400 / 400 Balance 960 / 960 1000 / 1000 Intake: IV Fluids 1000 / 1000 1000 / 1000 0.9 % Sodium Chloride 1, 1000 / 1000 1000 / 1000 000 ML @ 80 mls/hr IVC . [id number] Rx#: [id number] Oral 360 / 360 Output: Urine 400 / 400 Other: Meal Dinner Percent of Meal Consumed 100% # Voids 1 # Urine Diapers 1 1 Weight 95.889 kg Patient Weight 09/25/16 23:59 Weight 95.889 kg - Head Head exam: Present: normal inspection - ENT ENT exam: Present: normal exam - Neck Neck exam: Present: normal inspection - Respiratory Respiratory exam: Present: CTAB - Cardiovascular Cardiovascular exam: Present: RRR - GI/Abdominal GI/Abdominal exam: Present: normal bowel sounds - Extremities Exam Extremities exam: Present: normal inspection. Absent: pedal edema, tenderness - Neurological Exam Neurological exam: Present: CN II-XII intact, oriented X3 - Psychiatric Psychiatric exam: Present: normal affect Oncology: Obj Data - Labs CBC & Chem 7: 09/25/16 03:43 09/25/16 03:43 Labs: Laboratory Results - last 24 hr 09/25/16 09/25/16 03:43 03:43 WBC 2.3 L RBC 3.49 L Hgb 10.5 L Hct 31.2 L MCV 89.4 MCH 30.1 MCHC 33.7 RDW 13.7 Plt Count 86 L MPV 9.3 L Immature Gran % 1.3 Seg Neutrophils % 67.4 Lymphocytes % 23.0 Monocytes % 6.5 Eosinophils % 0.9 Basophils % 0.9 Neutrophils # 1.6 Lymphocytes # 0.5 L Monocytes # 0.2 Eosinophils # 0.0 Basophils # 0.0 Platelet Estimate Decreased L Immature Plt Fraction 2.2 Sodium 142 Potassium 3.9 Chloride 108 Carbon Dioxide 26 BUN 23 Creatinine 0.95 Est GFR ( Amer) > 60 Est GFR (Non-Af Amer) > 60 BUN/Creatinine Ratio 24 Glucose 98 Calculated Osmolality 298 Calcium 8.3 L Consult Discharge Plan - Plan [facility]errals: [facility] [Primary Care Provider] -
--- NOTE | 2016-09-25 18:20 | Internal Med Progress Note ---
Date of Encounter: 09/25/16 Time of Encounter: 17:30 - Assessment and plan (1) TIA (transient ischemic attack) Current Visit: Yes Status: Acute Assessment and plan: Patient states that he has been up and around in his room today and is feeling much better. Physical therapy has recommended inpatient swing bed/ rehabilitation after discharge We will continue IV fluids and continue antibiotics for UTI, will transition to po. Will continue telemetry and continuous pulse ox. Continue oxygen as needed , titrate to maintain sats greater than 92%. Head CT negative. Last echo in Mar, 2015 showed LVEF 60%, normal systolic function and mild LVDD, aortic sclerosis, mild MR, moderate AR. Bilateral carotid systems are essentially normal in Mar, 2015. Pt states that he is feeling much better and is up and around better than he has been in several days. He needed assitance to move in bed due to weakness. Continue to monitor pt condition and vital signs. Recent, acute weakness is most likely related to UTI. Echo done today showed LVEF 60-65% with normal systolic function, mild LVDD, mild AR and MR, no PFO. Head CT 09/23/16 07:25 IMPRESSION: 1. No acute intracranial abnormality nor acute calvarial fracture. 2. Minimal to mild chronic small vessel ischemic changes. D/ / Aravind Sandhu MD / Aravind Sandhu MD Interpreting Provider: Aravind Sandhu MD Continue telemetry and pulse ox 02, titrate as needed to maintain sats > 92%. Qualifiers: Transient cerebral ischemia type: unspecified Qualified Code(s): G45.9 - Transient cerebral ischemic attack, unspecified (2) UTI (urinary tract infection) Current Visit: Yes Status: Acute Assessment and plan: Final Culture shows Enterococcus species. Changed antibiotic over to Macrobid bid. Patient denies abdominal pain, an hematuria, any urinary symptoms such as urgency, frequency, abdominal pain. Qualifiers: Urinary tract infection type: site unspecified Hematuria presence: without hematuria Qualified Code(s): N39.0 - Urinary tract infection, site not specified (3) Pancytopenia due to chemotherapy Current Visit: Yes Status: Acute Assessment and plan: Pt has been seen by oncology. MOst likely chemo related and if ANC continues to drop in the AM, consider neupogen 480mcg SQ dailiy until ANC is >1000 for 2 days. No need to transfuse at this time. Transfuse if H and H < 21%/7g/dl or if platelets drop below 20K or 50K if there is active bleeding. (4) Neuroendocrine cancer Current Visit: No Status: Chronic Assessment and plan: Pt was seen by chemo, per their note: He is experiencing moderate myelosupression, his counts have not reached the nadeen. Continue monitoring CBC diff daily. If his ANC continue to drop in AM labs, I will recommend to start tomorrow: Neupogen 480 mg SQ daily until ANC is above 1000 in 2 consecutive days. He would probably will benefit from neulasta following cycle # 2 of cisplatin/etoposide. (5) Weakness Current Visit: Yes Status: Acute Assessment and plan: Most likely due to chemo, seems to be improving. Pt has been up in his room today and has been doing PT. Continue PT /OT. (6) Bilateral leg weakness Current Visit: No Status: Acute Assessment and plan: Plan as above. (7) DVT prophylaxis Current Visit: Yes Status: Acute Assessment and plan: Lovenox 40mg SQ - Subjective Interval history: Patient was seen and assessed at 1730. Sitting up in bed eating dinner. He states that he feels better today. He says he does not know why he was not able to move himself in the bed. He required assistance 2 to be pulled up in the bed. He is alert and oriented. - Constitutional Vitals: Temp Pulse Resp BP Pulse Ox 98.9 F 61 16 131/67 95 09/25/16 15:12 09/25/16 15:12 09/25/16 15:12 09/25/16 15:12 09/25/16 15:12 General appearance: Present: cooperative, A&O X 3, pleasant, no acute distress, answers questions appropriately - Head Head exam: Present: normal inspection - Eye Eye exam: Present: normal appearance, conjuntiva pink - ENT ENT exam: Present: mucous membranes moist, normal exam, normal external ear exam - Respiratory Respiratory exam: Present: decreased breath sounds, CTAB. Absent: rales, rhonchi, stridor, wheezes - Cardiovascular Cardiovascular exam: Present: RRR, +S1, +S2. Absent: clicks, diastolic murmur, gallop, systolic murmur - GI/Abdominal GI/Abdominal exam: Present: distended, normal bowel sounds, soft. Absent: hernia, tenderness - Extremities Exam Extremities exam: Present: normal inspection, warm, radial pulses palpable and symmetrical. Absent: pedal edema, tenderness - Neurological Exam Neurological exam: Present: alert, oriented X3, no focal deficits, strengths equal and symetr throughout. Absent: altered, facial droop, speech deficit - Skin Skin exam: Present: dry, intact, normal color, warm. Absent: rash, urticaria Internal Medicine: Result - Labs CBC & Chem 7: 09/25/16 03:43 09/25/16 03:43 Labs: Short CBC 09/25/16 Range/Units 03:43 WBC 2.3 L (4.3-11.1) K/mcL Hgb 10.5 L (12.9-16.9) g/dL Hct 31.2 L (37.5-50.1) % Plt Count 86 L (140-400) K/mcL Neutrophils # 1.6 (1.6-8.9) K/mcL BMP 09/25/16 03:43 Sodium 142 Potassium 3.9 Chloride 108 Carbon Dioxide 26 BUN 23 Creatinine 0.95 Glucose 98 Calcium 8.3 L Consult Discharge Plan - Plan [facility]errals: [facility] [Primary Care Provider] -
[2016-09-25] MEDS: Acetaminophen 325 MG TABLET PO PRN (22:27)
[2016-09-25] MEDS ORDERED: Acetaminophen 325 MG TABLET PO PRN (22:36)
[2016-09-26] MEDS: 0.9 % Sodium Chloride 1,000 ML IVC SCH (02:58)
[2016-09-26 05:24] LABS: Basophils % 0.5 %; Eosinophils % 0.5 %; Hematocrit 30.3 % (37.5-50.1); Hemoglobin 10.2 g/dL (12.9-16.9); Immature Granulocytes % 0.5 % (0-4); Immature Platelets 1.9 % (1.1-6.1); Lymphocytes # 0.6 K/mcL (0.6-4.6); Lymphocytes % 30.8 %; Mean Corpuscular HGB Conc 33.7 g/dL (31.6-35.5); Mean Corpuscular Volume 89.1 fL (83.0-100.0); Mean Platelet Volume 9.4 fL (9.4-12.4); Monocytes # 0.2 K/mcL (0.0-1.3); Monocytes % 9.2 %; Red Cell Distribution Width 13.8 % (11.5-14.5); Segmented Neutrophils % 58.5 %
[2016-09-26 05:26] LABS: Neutrophils # 1.2 K/mcL (1.6-8.9)
[2016-09-26 05:27] LABS: Platelet Count 77 K/mcL (140-400)
[2016-09-26 05:37] LABS: BUN/Creatinine Ratio 20 (6-26); Blood Urea Nitrogen 17 mg/dL (8-26); Calcium 8.5 mg/dL (8.6-10.8); Carbon Dioxide 27 mEq/L (19-29); Chloride 109 mEq/L (98-109); Glucose 89 mg/dL (70-99); Osmolality,Calculated 291 (280-300); Potassium 3.8 mEq/L (3.5-4.5); Sodium 140 mEq/L (136-145); eGFR For African Americans > 60 (> 60); eGFR For Non-African Americans > 60 (> 60)
[2016-09-26] MEDS: *HR* Enoxaparin 40 MG/0.4 ML SYRINGE SQ SCH (05:46)
[2016-09-26 06:03] LABS: Platelet Estimate Decreased (Normal)
[2016-09-26] MEDS: Aspirin Enteric Coated 81 MG Tablet PO SCH (09:15)
[2016-09-26] MEDS: Cholecalciferol (D-3) 1,000 UNIT TABLET PO SCH (09:16)
[2016-09-26] MEDS: Nitrofurantoin (BID) 100 MG CAPSULE PO SCH ×2 (09:16→17:06)
--- NOTE | 2016-09-26 10:29 | Oncology Inp Progress Note ---
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 Experiencing chemo associated myelosuppression and generalized weakness, but otherwise not significant side effects. (2) Pancytopenia due to chemotherapy Current Visit: Yes Status: Acute Assessment and plan: - Blood cell counts continue to drop, now with mild neutropenia. I am concerned that he has not reached its nadeen and counts will continue to drop even more. - I would recommend to start neupogen 480 mcg daily, and discontinue it once his counts start trending up or stabilize. - No need for transfusion of blood products at this time. Continue monitoring CBC daily and transfuse for HCT/Hb less than 21%/7 g/dl . Transfuse platelets if counts drop below 20 K or 50K if there is active bleeding. Oncology: Subj Interval history: Chief complaint: mild neutropenia, generalized weakness. Patient has developed mild neutropenia, but remains afebrile. Denies recent fever, chills, nausea, vomiting. Reports that breakfast was well tolerated. denies significant overnight issues. Still reporting generalized weakness. ROS: generalized weakness. - Constitutional Vitals: Vital Signs Temp Pulse Resp BP Pulse Ox 09/26/16 06:54 98.2 F 61 14 152/60 94 09/26/16 03:26 97.6 F 56 15 150/76 96 09/25/16 23:33 99.8 F H 09/25/16 22:24 100.2 F H 71 18 158/50 95 09/25/16 19:39 95 09/25/16 19:19 99.9 F H 71 16 154/67 95 09/25/16 15:12 98.9 F 61 16 131/67 95 09/25/16 11:32 98.1 F 64 16 153/68 96 Intake and Output 09/25/16 09/26/16 09/26/16 23:59 07:59 15:59 Intake Total 340 / 340 1100 / 1100 Output Total 175 / 175 Balance 165 / 165 1100 / 1100 Intake: IV Fluids 1000 / 1000 0.9 % Sodium Chloride 1, 1000 / 1000 000 ML @ 80 mls/hr IVC . [id number] LILLY Rx#: [id number] Oral 340 / 340 100 / 100 Output: Urine 175 / 175 Other: Meal Dinner Percent of Meal Consumed 85% # Urine Diapers 1 2 Weight 95.254 kg Patient Weight 09/26/16 23:59 Weight 95.254 kg - Neck Neck exam: Present: normal inspection - Respiratory Respiratory exam: Present: CTAB - Cardiovascular Cardiovascular exam: Present: RRR - Extremities Exam Extremities exam: Present: normal inspection. Absent: pedal edema Oncology: Obj Data - Labs CBC & Chem 7: 09/26/16 04:45 09/26/16 04:45 Labs: Laboratory Results - last 24 hr 09/26/16 09/26/16 04:45 04:45 WBC 2.0 L RBC 3.40 L Hgb 10.2 L Hct 30.3 L MCV 89.1 MCH 30.0 MCHC 33.7 RDW 13.8 Plt Count 77 L MPV 9.4 Immature Gran % 0.5 Seg Neutrophils % 58.5 Lymphocytes % 30.8 Monocytes % 9.2 Eosinophils % 0.5 Basophils % 0.5 Neutrophils # 1.2 L Lymphocytes # 0.6 Monocytes # 0.2 Eosinophils # 0.0 Basophils # 0.0 Platelet Estimate Decreased L Immature Plt Fraction 1.9 Sodium 140 Potassium 3.8 Chloride 109 Carbon Dioxide 27 BUN 17 Creatinine 0.83 Est GFR ( Amer) > 60 Est GFR (Non-Af Amer) > 60 BUN/Creatinine Ratio 20 Glucose 89 Calculated Osmolality 291 Calcium 8.5 L Consult Discharge Plan - Plan [facility]errals: [facility] [Primary Care Provider] -
--- NOTE | 2016-09-26 13:46 | Discharge Summary ---
Date of Encounter: 09/26/16 Time of Encounter: 10:15 - Discharge Diagnosis (1) TIA (transient ischemic attack) Priority: Primary Status: Acute Comments: Patient is currently asymptomatic. Ambulating well and tolerating oral diet well. No neurological deficit. Echocardiogram - LVEF 60-65% normal LV size and function, no diastolic dysfunction, normal RV size and function EKG - sinus rhythm with no acute ST-T changes CT head - no acute intracranial abnormality, chronic small vessel ischemic changes Chest x-ray - no acute process Urine culture - positive for enterococcus sensitive to nitrofurantoin Discharge to ECF today, Continue all meds on discharge Qualifiers: Transient cerebral ischemia type: unspecified Qualified Code(s): G45.9 - Transient cerebral ischemic attack, unspecified (2) UTI (urinary tract infection) Priority: Primary Status: Acute Comments: UTI present on admission, urine culture positive for enterococcus sensitive to nitrofurantoin Continue PO nitrofurantoin Qualifiers: Urinary tract infection type: site unspecified Hematuria presence: without hematuria Qualified Code(s): N39.0 - Urinary tract infection, site not specified (3) Generalized weakness Priority: Primary Status: Acute Comments: Likely secondary to chemotherapy - symptoms have now improved Continue PT and OT Advised to follow up with primary care physician and primary oncologist (4) Pancytopenia due to chemotherapy Priority: Primary Status: Acute Comments: Blood cell counts continue to drop - neutropenia present 1 dose of Neupogen 480 g subcutaneous to be given today before discharge CBC will need to be done daily Transfuse PRBC if hematocrit is less than 24% and if hemoglobin is less than 7 g /dL Transfuse platelets if counts drop below 20,000, or if counts drop below 50,000 with active bleeding Follow-up with primary oncologist (5) Neuroendocrine cancer Priority: Primary Status: Chronic Comments: Currently on C1D11 of palliative chemotherapy with cisplatin/Etoposide for 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 Experiencing chemo associated myelosuppression and generalized weakness Advised to follow-up with primary oncologist as outpatient - Discharge Medications Prescriptions: Atorvastatin [Lipitor] 20 mg PO HS #30 tab Nitrofurantoin (BID) [Macrobid] 100 mg PO BIDWM 7 Days Home Medications: Aspirin [Adult Low Dose Aspirin EC] 81 mg PO QAM 04/10/15 [History] Metoprolol Tartrate [Lopressor] 50 mg PO BID 04/10/15 [History] Omeprazole [PriLOSEC] 20 mg PO DAILY #30 capsule. 05/25/15 [Rx] Cholecalciferol (Vitamin D3) [Vitamin D3] 1,000 unit PO DAILY 05/31/16 [History] Clopidogrel [Plavix] 75 mg PO DAILY 05/31/16 [History] Donepezil [Aricept] 10 mg PO HS 05/31/16 [History] Losartan Potassium [Cozaar] 50 mg PO BID 09/23/16 [History] Memantine [Namenda] 5 mg PO DAILY 09/23/16 [History] Atorvastatin [Lipitor] 20 mg PO HS #30 tab 09/26/16 [Rx] Nitrofurantoin (BID) [Macrobid] 100 mg PO BIDWM 7 Days 09/26/16 [Rx] Allergies/Adverse Reactions: 3 Allergy/AdvReac Type Severity Reaction Status Date / Time meperidine [From Demerol] AdvReac Itching Verified 09/12/16 10:35 Procedures/tests Complete & Pending: Procedures Performed prior 72 hours Category Date Time Status EV echocardiogram Routine Y 09/25/16 07:00 Completed Date of admission: 09/23/16 11:33 [facility] care physician: [facility] Consults: 09/23/16 13:10 Consult to Contracting Manager [CONS] Routine Reason for SW Consult: pt admitted for weakness and falls, may need pt/ot 09/23/16 13:12 Consult to Occupational Therapy [CONS] Routine Comment: Evaluate, develop and implement POC Reason for Consult: Fell at home 3 days ago. Acute bilateral lower extremity weakness. Patient reports new shuffling gait with what he describes as potential scissoring gait. Consult to Physical Therapy [CONS] Routine Comment: Evaluate, develop and implement POC Reason for Consult: Fell at home 3 days ago. Acute bilateral lower extremity weakness. Patient reports new shuffling gait with what he describes as potential scissoring gait. Anticipated date of discharge: 09/26/16 - Patient Status Disposition: Transfer SNF Condition: Fair Functional capacity at discharge: uses cane/walker Overall status at discharge: patient is progressing back to baseline - Discharge Instructions Follow Up With: [facility] [Primary Care Provider] - - Diet and Activity Activity: as per physical therapy, increase activity as tolerated Diet: advance to your usual diet Hospital course: Mr. Lucas is a 75 year old male with past medical history of neuroendocrine cancer, coronary artery disease, CVA, GERD, hyperlipidemia, hypertension, anxiety, depression and TIA and dementia. Patient presented to the ED with complaints of generalized weakness and frequent falls. Patient is undergoing chemotherapy with cisplatin. Patient admitted to dysuria and urinary urgency and incontinence. He also developed a shuffling gait over the past few days prior to admission. Initial CT of the head was negative for any acute intracranial abnormality. Troponin was negative. UA revealed some leukocyte Estrace. Culture is positive for enterococcus sensitive to nitrofurantoin. Patient was continued on nitrofurantoin. Oncology has evaluated the patient. Recommended close monitoring and supportive care. Patient does have pancytopenia likely due to chemotherapy. Advised one dose of Neupogen before discharge. Advised to transfuse platelets if counts are below 20,000 or if counts are below 50,000 with active bleeding. Advised to transfuse PRBC if hematocrit is less than 21% hemoglobin is less than 7 g/dL. PT and OT have evaluated the patient. Patient was recommended ECF on discharge. Patient's generalized weakness is likely due to chemotherapy. Patient's symptoms are now improved. Patient and his have been explained about his condition and plan of care in detail. They understood and agreed. No unanswered questions. states the patient follows up regularly with primary oncologist. Patient did not have any other acute events or complications during his stay in the hospital. Patient is tolerating oral diet well and ambulating with minimal assistance. Patient states he feels better and wants to be discharged today. Patient is being discharged to ECF in a stable condition. - Time Spent with Patient Total time spent providing and/or coordinating discharge services: Less than 30 minutes - Constitutional Vitals: Temp Pulse Resp BP Pulse Ox 97.5 F L 59 14 151/63 96 09/26/16 10:38 09/26/16 10:38 09/26/16 10:38 09/26/16 10:38 09/26/16 10:38 General appearance: Present: cooperative, A&O X 3, pleasant, no acute distress, answers questions appropriately - Head Head exam: Present: atraumatic - Eye Eye exam: Present: EOMI - ENT ENT exam: Present: mucous membranes moist - Neck Neck exam general surgery: Present: supple - Respiratory Respiratory exam: Present: CTAB. Absent: rales, rhonchi, wheezes, tachypnea - Cardiovascular Cardiovascular exam: Present: RRR, +S1, +S2 - GI/Abdominal GI/Abdominal exam: Present: soft. Absent: distended, firm, guarding, tenderness - Extremities Exam Extremities exam: Present: radial pulses palpable and symmetrical. Absent: cyanotic, pedal edema - Neurological Exam Neurological exam: Present: alert, oriented X3, no focal deficits. Absent: facial droop, speech deficit
--- NOTE | 2016-09-26 15:53 | Physician Discharge Referral ---
ExtendedCare Referral Info Provider in Charge after Transfer: PCP Institutional Level of Care: Skilled - Diagnosis (1) TIA (transient ischemic attack) Priority: Primary Status: Acute (2) UTI (urinary tract infection) Priority: Primary Status: Acute (3) Generalized weakness Priority: Primary Status: Acute (4) Pancytopenia due to chemotherapy Priority: Primary Status: Acute (5) Neuroendocrine cancer Priority: Primary Status: Chronic Prognosis: Fair Aware of Diagnosis: Patient, Family Aware of Prognosis: Patient, Family - Transfer Medications Prescriptions: Atorvastatin [Lipitor] 20 mg PO HS #30 tab Nitrofurantoin (BID) [Macrobid] 100 mg PO BIDWM 7 Days Home Medications: Aspirin [Adult Low Dose Aspirin EC] 81 mg PO QAM 04/10/15 [History] Metoprolol Tartrate [Lopressor] 50 mg PO BID 04/10/15 [History] Omeprazole [PriLOSEC] 20 mg PO DAILY #30 capsule. 05/25/15 [Rx] Cholecalciferol (Vitamin D3) [Vitamin D3] 1,000 unit PO DAILY 05/31/16 [History] Clopidogrel [Plavix] 75 mg PO DAILY 05/31/16 [History] Donepezil [Aricept] 10 mg PO HS 05/31/16 [History] Losartan Potassium [Cozaar] 50 mg PO BID 09/23/16 [History] Memantine [Namenda] 5 mg PO DAILY 09/23/16 [History] Atorvastatin [Lipitor] 20 mg PO HS #30 tab 09/26/16 [Rx] Nitrofurantoin (BID) [Macrobid] 100 mg PO BIDWM 7 Days 09/26/16 [Rx] Allergies/Adverse Reactions: 3 Allergy/AdvReac Type Severity Reaction Status Date / Time meperidine [From Demerol] AdvReac Itching Verified 09/12/16 10:35 - Respiratory Orders Smoking Cessation: Smoking cessation has been advised. For more information, call the [place] Tobacco Quit Line at 4-550-HVZV-NOW. - Lab Orders Lab Orders: CBC (Daily for the next one week) - Ancillary Orders May use pressure relief devices daily prn - Advance Directives Code Status: Full Code - Rehabiliation Orders Rehab Orders: ROM Exercises, Evaluation for Physical Therapy, Evaluation for Occupational Therapy - Treatments Skin tear care topically daily PRN per policy - Diet Orders Regular CERTIFICATION: I certify that the transfer of the above named patient to an Extended Care Facility is necessary for the continuing treatment of the diagnosis listed. The above information is true and accurate reflection of patient's current condition. Confidential - Redisclosure prohibited without a patient's written consent.
[2016-09-26 18:09] VITALS: BP 143/66
== END 2016-09-26 18:45 ==
LOC: 3BNU 07:07 → EMEROO 07:07 → 3BNU 12:14
PROVIDERS: ADMIT Nurse Practitioner; ATTEND Nurse Practitioner Family